=== PATIENT | female | born 1935 | race Caucasian/White ===

== ENCOUNTER → 2016-07-26 | Outpatient (CLI) | payer MEDICARE, BC ==
--- NOTE | 2016-07-26 13:49 | US ---
EXAMINATION TYPE: US kidneys/renal and bladder DATE OF EXAM: 07/26/2016 10:22 AM COMPARISON: NONE CLINICAL HISTORY: Hydronephrosis R93.4. EXAM MEASUREMENTS: Right Kidney: 9.2 x 3.5 x 3.7 cm Left Kidney: 9.4 x 4.1 x 5.0cm TECHNOLOGIST IMPRESSION: Right Kidney: wnl Left Kidney: 3.4cm simple cyst seen Bladder: wnl Bilateral Jets seen: yes No hydronephrosis is currently evident. No suspicious masses are evident on the kidneys. There is a 3 .4 x 3.1 x 3.3 cm cyst on the left kidney. IMPRESSION: 1. Left renal cyst. 2. No hydronephrosis
== END ==
LOC: RADUSWWP 10:03
PROVIDERS: ATTEND Urology
DX: N28.1 Cyst of kidney, acquired (principal); Z87.448 Personal history of other diseases of urinary system
CPT/HCPCS: 76770